=== PATIENT | female | born 1950 | race Caucasian/White ===

== ENCOUNTER → 2024-03-27 17:51 | Outpatient (REF) | payer OTHER, SELFPAY | LOC: RAD 17:51 | PROVIDERS: ATTENDING PHYSICIAN Internal Medicine Rheumatology; FAMILY PHYSICIAN Family Medicine | DX: M06.00 Rheumatoid arthritis without rheumatoid factor, unspecified site (principal); M25.562 Pain in left knee | CPT/HCPCS: 73560; 73565 ==

== ENCOUNTER → 2024-05-21 10:34 | Outpatient (REF) | payer OTHER, SELFPAY | LOC: HWRAD 10:34 | PROVIDERS: ATTENDING PHYSICIAN Internal Medicine Critical Care Medicine; FAMILY PHYSICIAN Family Medicine | DX: J84.9 Interstitial pulmonary disease, unspecified (principal) | CPT/HCPCS: 71250 ==

== ENCOUNTER 2024-09-25 13:22 | Inpatient (IN) | payer OTHER, SELFPAY ==
[2024-09-25 11:43] LABS: Hemoglobin 13.1 g/dL (12.0-16.0); Mean Corp Hgb Conc. 33.6 g/dL (33.0-37.0); Mean Corpuscular Hgb 35.1 pg (27.0-31.0); Mean Corpuscular Volume 104.6 fL (81.0-99.0); Mean Platelet Volume 9.6 fL (7.4-10.4); Platelet Count 163 10^3/uL (130-400); Red Blood Cell Count 3.73 10^6/uL (4.20-5.40); Red Cell Dist. Width 13.4 % (11.5-14.5); White Blood Cell Count 5.3 10^3/uL (4.8-10.8)
[2024-09-25 11:58] LABS: Lactic Acid 1.5 mmol/L (0.7-2.0)
[2024-09-25 12:14] LABS: ALT (SGPT) 21 U/L (0-35); AST (SGOT) 35 U/L (14-36); Albumin 3.7 g/dl (3.5-5.0); Alkaline Phosphatase 86 U/L (38-126); Blood Urea Nitrogen 23 mg/dl (7-17); Calcium 8.5 mg/dl (8.4-10.2); Carbon Dioxide 28 mmol/L (22-30); Chloride 92 mmol/L (98-107); Estimated Creatinine Clearance 69 ml/min; Glucose 134 mg/dl (70-99); Sodium 131 mmol/L (135-145); Total Bilirubin 0.8 mg/dl (0.2-1.3); Total Protein 6.6 g/dl (6.3-8.2); eGFR > 60.00
--- NOTE | 2024-09-25 12:32 | ED.GENMED ---
History of Present Illness
General
Chief Complaint: Breathing Problem
Source: patient, records, family, ambulance crew and physician
Exam Limitations: none
Time Seen by Provider: 09/25/24 12:00
Nursing documentation reviewed up to this point in time: agreed with
History of Present Illness
History of Present Illness:
74-year-old female with a past medical history of interstitial lung disease, rheumatoid arthritis who presents to the emergency department sent by her PCP via EMS for evaluation of worsening shortness of breath and cough, hypoxia. Patient reports
that for the past week or so she has had flulike illness that she describes myalgias, hacking cough, shortness of breath. She is feeling very fatigued. She says she has had some nausea and even 2 episodes of vomiting. She has been dealing with
some diarrhea. Tactile fever. Symptoms were not improving and in fact shortness of breath was worsening and so she went to her PCP for evaluation today. There she was found to be tachycardic, tachypneic, hypoxic and was referred to the ER. She
was tested for COVID and flu at PCP office and these were negative.
Past History
Past History
ED Past Medical History: Other (Interstitial lung scarring) and Other (Rheumatoid arthritis); Negative Asthma, HTN, Hypercholesterolemia or NIDDM
ED Past Surgical History: Orthopedic (Bilateral hip replacements left shoulder surgery)
Social History
Tobacco: Non-smoker
Alcohol: Occasional
Drug: None
Personal:
Living: with family
Employment: Retired
Family History
Family History: Other (Noncontributory)
Review of Systems
Review of Systems
All Other Systems: ROS reviewed and negative except as documented in HPI and ROS
Constitutional: Reports fever and fatigue; Denies chills
EENT: Reports runny nose; Denies sore throat
Respiratory: Reports cough and trouble breathing
Cardiac: Denies chest pain or palpitations
ABD/GI: Reports nausea, vomiting and diarrhea; Denies abdominal pain
: Denies flank pain
Musculoskeletal: Denies edema, neck pain or back pain
Neurological: Reports headache; Denies dizzy
Phy Exam
Physical Exam
Physical Exam:
General: Awake, alert, oriented x3; mild respiratory distress
Head: Normocephalic, atraumatic
Eyes: Conjunctiva normal, sclera anicteric
Throat: Airway intact, handling secretions
Neck: Trachea midline, supple without meningismus
Lungs: Hypoxic requiring 4 L nasal cannula, tachypneic; scattered rhonchorous breath sounds most pronounced at the lung bases
Heart: Tachycardia with regular rhythm, no murmurs, gallops, or rubs
Neuro: No gross deficits
Skin:, Dry, warm and well-perfused
Extremities: No edema in extremities, equal pulses in all extremities
Scores
Heart Failure Risk
Heart Failure Risk Score: Not Applicable
Heart Score for Chest Pain Patients
STEMI patient?: Not applicable
Withdrawal Assessment of Alcohol
Withdrawal Assessment Completed?: Not applicable
Sepsis
Sepsis Screening
Sepsis Assessment: Sepsis
Sepsis Screen
Sepsis Screen: Sepsis
Date: 09/25/24
Time: 12:35
Course
Orders/Labs/Results
Orders:
Orders
09/25/24 11:20
CR Chest - 2 Views Urgent
Comment:
Reason For Exam: sob
09/25/24 11:26
Complete Blood Count/With Diff Urgent
Comprehensive Metabolic Panel Urgent
Lactate Level [Lactic Acid] Urgent
09/25/24 12:25
CT Chest W/o Iv Contrast Urgent
Comment:
Reason For Exam: worsening cough, SOB, hypoxia
Azithromycin 500 mg/250 ml [Zithromax Infusion] 500 mg in 250 ml IV NOW
CefTRIAXone [Rocephin] 1,000 mg IV NOW STA
Dexamethasone Sod Phosphate [Decadron] 10 mg IV NOW STA
Ipratropium/Albuterol Sulfate [Duoneb] 3 ml INH R NOW STA
09/25/24 12:30
Lactate Level [Lactic Acid] Urgent
Blood Culture Q30M
TRACY Source: Blood/Venous
Specimen Description:
09/25/24 13:00
Blood Culture Q30M
TRACY Source: Blood/Venous
Specimen Description:
Abnormal Lab Results
09/25/24
11:26
RBC 3.73 L 10^6/uL
(4.20-5.40)
MCV 104.6 H fL
(81.0-99.0)
MCH 35.1 H pg
(27.0-31.0)
Sodium 131 L mmol/L
(135-145)
Chloride 92 L mmol/L
(98-107)
BUN 23 H mg/dl
(7-17)
Glucose 134 H mg/dl
(70-99)
09/25/24 11:26
09/25/24 11:26
Vital Signs
Initial and Last Documented VS:
Initial Vital Signs
Resp
22
09/25/24 11:10
Last Documented Vital Signs
Temp Pulse Resp BP Pulse Ox
36.9 C 111 26 111/77 95
09/25/24 11:12 09/25/24 11:15 09/25/24 11:15 09/25/24 11:12 09/25/24 11:15
MDM/Problems Addressed
Differential Diagnosis Includes:
Interstitial lung disease, acute bronchitis, pneumonia
MDM/Problems Addressed:
74-year-old female presents to the ER for evaluation of worsening shortness of breath and cough over the past week�found to be hypoxic, tachycardic, tachypneic by PCP and referred via EMS to the ER. She arrives to us tachycardic, tachypneic,
hypoxic requiring 4 L nasal cannula. Afebrile. Normotensive. Physical exam as above. Respiratory status improved with oxygen supplementation. Will place large-bore IVs and labs including a CBC and a CMP. Check lactate and blood cultures.
Check stat portable chest x-ray. Reassess after the above.
Labs reviewed: CBC unremarkable, CMP no clinically significant abnormalities. Chest x-ray reviewed by me shows chronic interstitial lung disease suspect superimposed pneumonia. Will order CT chest to better evaluate given background lung changes.
Will cover with antibiotics for suspected community-acquired pneumonia. Can also treat with steroid and DuoNeb given background interstitial lung disease. Will admit for acute hypoxic respiratory failure suspect secondary to pneumonia in the
setting of background interstitial lung disease. Case discussed with hospitalist for admission.
Chronic conditions affecting care:
Interstitial lung disease
Acute Exacerbation and/or Progression of Chronic Illness:
Acute flare of chronic interstitial lung disease treated with steroids and neb
*Radiology
Radiology exam reviewed: preliminary read by ED provider and radiology read reviewed
*Pulse Oximetry
Patient hypoxic: yes
*Critical Care Note
Total Time (30-74mins, 75-104mins- exclusive of procedures): 30
comment:
Critical care statement: A total of 30 minutes of critical care time was provided for this patient. This includes management of unstable vital signs, evaluation of the patient at bedside, frequent reassessment, discussion with
consultants/hospitalist, and review of pertinent medical records. This time was separate from time utilized to perform any aforementioned documented procedures
Data Reviewed
Review of Other/Old Records Reveals: Labs and Records (Reviewed note from PCP office today)
Source: patient, records, family, ambulance crew and physician
Patient Management
Discussion with other providers: Hospitalist (Discussed with hospitalist) and PCP (Discussed with PCP who called ahead)
Escalation/DeEscalation of care consider admission/obs:
Admission indicated
ED Attending Note
-
Portions of this chart may have been created with voice recognition software.� Occasional wrong word or��sound alike� substitutions may have occurred due to the inherent limitations of voice recognition software.
Discharge Plan
Departure
Patient Disposition: Admit
Date of Disposition: 09/25/24
Time of Disposition: 12:30
Admit to doctor: Gigi
Presentation/result/management discussed w/ accepting MD/DO: Hospitalist
Discharge Problem:
Acute hypoxemic respiratory failure, Pneumonia, Interstitial lung disease
Prescriptions:
No Action
cholecalciferol (vitamin D3) 1,000 UNITS tablet
1,000 units PO DAILY Qty: 0
mometasone [Asmanex Twisthaler] 220 MCG aerosol powdr breath activated
2 puff inhalation DAILY
Patient Comments:
2 inhalations daily
cyanocobalamin (vitamin B-12) 1,000 MCG capsule
1,000 mcg PO DAILY Qty: 0
Vitamin B12
1,000 mg INJ MONTHLY
leflunomide [Arava] 10 MG tablet
10 mg PO DAILY
Prevacid
1 tab PO DAILY
ferrous sulfate [Iron (ferrous sulfate)] 325 MG tablet
325 mg PO DAILY
Calcium 1 TAB Tab
1 tab PO DAILY
mupirocin 1 APPLIC ointment
1 applic intranasal BID Qty: 1 0RF
Patient Comments:
patient applied today 11/18/2019 has been applying bid since 11/15/2019
Proair Hfa
2 puff inhalation PRN PRN (Reason: SOB)
sennosides [senna] 1 TABLET tablet
2 tab PO BID 0RF
aspirin 325 MG tablet
325 mg PO DAILY 0RF
Rx Instructions:
Daily x 4 weeks for blood clot prevention
docusate sodium 100 MG capsule
100 mg PO BID 0RF
hydrocodone-acetaminophen 1 TABLET tablet
1 tab PO Q4HPRN PRN (Reason: moderate-severe pain) Qty: 35 0RF
Rx Instructions:
Dx total joint replacement
ongoing therapy
1 tab moderate-severe pain
acetaminophen 500 MG tablet
500 mg PO QID Qty: 1 0RF
Rx Instructions:
Standing order
Do not exceed >4000 mg daily
naproxen sodium [Aleve] 220 MG tablet
440 mg PO BID Qty: 1 0RF
Rx Instructions:
Take twice a day with food
Do not take within 2 hours of aspirin
etanercept [Enbrel] 50 MG/ML syringe
50 mg SQ WEEKLY Qty: 1 0RF
Patient Comments:
weekly saturday
Rx Instructions:
Hold one full cycle; next dose 11/27/19
alendronate 70 MG tablet
70 mg PO WEEKLY Qty: 1 0RF
Patient Comments:
saturday
Rx Instructions:
Hold one full cycle; next dose 11/29/19
Referrals:
Robe Cooley Jr., DO [Family Provider] -
Interventions
Interventions:
*Risk Screen - Suicide Last Done: 09/25/24 11:12
*General Assessment Last Done: 09/25/24 11:12
*Neglect/Abuse Screening Last Done: 09/25/24 11:12
*ED COVID-19 Vaccine History Last Done: 09/25/24 11:12
ED- Cardiac Assessment Last Done: 09/25/24 11:12
ED- Pulmonary Assessment Last Done: 09/25/24 11:12
Discharge Date and Time
Print Language: CYMRAES
--- NOTE | 2024-09-25 12:37 | HPS.HSE ---
Family Physician
-
Family Physician: Robe Cooley Jr.
Chief Complaint
-
sog
cough
diarrhea, nausea and vomitting
History of Present Illness
74-year-old female with a past medical history of interstitial lung disease, rheumatoid arthritis who presents to the emergency department sent by her PCP via EMS for evaluation of worsening shortness of breath and cough, hypoxia. Patient reports
that for the past week or so she has been wearing generalized body ache, short of breath which is worse with exertion, nonproductive dry cough fatigue and weakness. For past 2 days she has had some nausea and even 2 episodes of vomiting and
multiple episodes of diarrhea. Denies blood in the stool or vomiting. Patient complained of headache. She is dizzy. Denied any syncope. Patient stated some midsternal pain from cough. Denied dysuria or hematuria.
Chest x-ray with pneumonia patient is requiring 4 L of oxygen. Patient received Zithromax and ceftriaxone dexamethasone and nebs in the ER. Admitting for further management
Medical History
Past Medical History
Past Medical History: Reports Other
Additional Past Medical History:
Interstitial lung disease
GERD
Pulmonary fibrosis
Rheumatoid arthritis
Hyperlipidemia
Teller's anemia
Past Surgical History: Reports Other
Additional Past Surgical History:
Bilateral total hip replacement
Left shoulder replacement
Social History
Tobacco: Non-smoker
Alcohol: Occasional
Drug: None
Personal:
Living: With Family
Family History
Family History: Not pertinent
Allergies / Home Medications
Allergies reflects when Allergies were last updated in [facility].
Home Medications with original date entered in [facility]
Allergy/Medication List:
Allergies
Allergy/AdvReac Type Severity Reaction Status Date / Time
aspirin Allergy 'severe Verified 11/18/19 10:26
bruising'
hydroxychloroquine Allergy 'altered Verified 11/18/19 10:26
[From Plaquenil] mental
state'
Penicillins Allergy Unknown Verified 11/18/19 10:26
Sulfa (Sulfonamide Allergy Unknown Verified 11/18/19 10:26
Antibiotics)
[Sulfa(Sulfonamide
Antibiotics)]
Tetanus Vaccines and Toxoid Allergy throat Verified 11/18/19 10:26
[Tetanus] closed
tofacitinib [From Xeljanz] Allergy 'altered Verified 11/18/19 10:26
mental
state'
celecoxib [From Celebrex] AdvReac Unknown Unknown Verified 11/18/19 10:26
Home Medications
Vitamin B12 1,000 mg INJ Q6W 04/21/18
cyanocobalamin (vitamin B-12) 1,000 mcg capsule 1,000 mcg PO DAILY ##0 04/21/18
mometasone 220 mcg/actuation(14 doses) breath activated powder inhaler (Asmanex Twisthaler) 2 puff inhalation R DAILY 04/21/18
leflunomide 10 mg tablet (Arava) 10 mg PO DAILY 09/19/19
albuterol sulfate 90 mcg/actuation aerosol inhaler 2 puff inhalation R Q4HPRN PRN sob ##0 11/10/19
acetaminophen 650 mg tablet,extended release (Tylenol Arthritis Pain) 1,300 mg PO Q8HPRN PRN mild pain 09/25/24
ascorbic acid (vitamin C) 1,000 mg tablet (Vitamin C) 1 g PO DAILY 09/25/24
cholecalciferol (vitamin D3) 50 mcg (2,000 unit) tablet (Vitamin D3) 50 mcg PO Q48H 09/25/24
duloxetine 30 mg capsule,delayed release 30 mg PO BID 09/25/24
famotidine 20 mg tablet (Pepcid) 20 mg PO HS 09/25/24
fexofenadine 180 mg tablet 180 mg PO DAILY 09/25/24
fluticasone 500 mcg-salmeterol 50 mcg/dose blistr powdr for inhalation 1 inh inhalation R BID 09/25/24
omega 1-zar-ypn-fish oil 1,200 mg (144 mg-216 mg) capsule (Fish Oil) 1 cap PO DAILY 09/25/24
rosuvastatin 5 mg tablet 5 mg PO DAILY 09/25/24
turmeric 400 mg capsule 800 mg PO DAILY 09/25/24
Review of Systems
-
Constitutional: Reports Fatigue and Chills
EENT: Reports No Symptoms
Respiratory: Reports Cough, Hemoptysis and Trouble Breathing
Cardiac: Reports No Symptoms
Abdomen/GI: Reports Nausea, Vomiting and Diarrhea
: Reports No Symptoms
Musculoskeletal: Reports No Symptoms
Skin: Reports No Symptoms
Neurological: Reports No Symptoms
Endocrine: Reports No Symptoms
Hematologic/Lymphatic: Reports No Symptoms
Psych: Reports No Symptoms
Physical Exam
Vital Signs
Vital Signs
Temp Pulse Resp BP Pulse Ox
98.5 F 111 26 111/77 95
09/25/24 11:12 09/25/24 11:15 09/25/24 11:15 09/25/24 11:12 09/25/24 11:15
Physical Exam
General: Well Developed, Well Nourished and No Apparent Distress
HEENT: NormoCephalic, Moist mucous membranes and Atraumatic
Respiratory: Rhonchi
Cardiac: S1/S2 and Regular Rhythm; No Murmur or Rub
GI: Soft, Non Tender, Non Distended and Normal Bowel Sounds; No Organomegaly
Rectal: Deferred by Provider
Musculoskeletal: No Clubbing, No Cyanosis and No Edema
Skin: No Rash
Neuro: AO x 3 and Nonfocal/grossly intact
Psych: Calm
Laboratory Results
-
09/25/24 11:26
09/25/24 11:26
Laboratory Results
Lactic Acid 1.5 mmol/L (0.7-2.0) 09/25/24 11:26
Total Bilirubin 0.8 mg/dl (0.2-1.3) 09/25/24 11:26
AST 35 U/L (14-36) 09/25/24 11:26
ALT 21 U/L (0-35) 09/25/24 11:26
Alkaline Phosphatase 86 U/L (38-126) 09/25/24 11:26
Data Reviewed
-
Diagnostic Radiology: Report Reviewed by me
Lab Data: Labs Reviewed by me
Impression/Plan
-
# Acute hypoxic respiratory failure likely from community acquired pneumonia
# History of interstitial lung disease
-COVID flu negative
-Chest x-ray with Findings suggesting severe pulmonary fibrosis, left greater than right.Possible mild superimposed pneumonia in the left lung and right lower lung as described above. New
-Patient requiring 4 L of oxygen
-Continue supplemental oxygen to keep sat greater than 92
-Wean as tolerated
-Nebs as needed for short of breath and wheezing
-IV steroids continued
-CT chest pending
- Zithromax and ceftriaxone continued
# Hyponatremia likely hypervolemic
-Sodium 131
-Normal saline x 1 bag
-BMP in a.m.
#Tachycardia likely from dehydration
-Fluids continued
-Continue to monitor heart rate
# Depression
-Duloxetine
# GERD
-PPI continued
# Rheumatoid arthritis
-held Arava at home.
# Hyperlipidemia
-Statin continued
# DVT prophylaxis
-Lovenox subcu
# CODE STATUS
-Full code
[2024-09-25] MEDS: DECADRON 10 MG IV (12:41)
[2024-09-25] MEDS: DUONEB 3 ML INH ×2 (12:46→20:28)
[2024-09-25] MEDS: ROCEPHIN 1000 MG IV (12:59)
[2024-09-25] MEDS: ZITHROMAX INFUSION 250 IV (13:01)
[2024-09-25 13:19] LABS: Absolute Neutrophils -Man Diff 3.7 10^3/uL (1.4-6.5); Atypical Lymphocytes 3 %; Band Neutrophils 19 % (0-3); Lymphocytes 16 % (20-51); Metamyelocytes 2 % (-); Monocytes 9 % (2-9); Segmented Neutrophils 51 % (42-75)
--- NOTE | 2024-09-25 13:19 | W.PN.UPDATE ---
Update Note
Progress Note Update
This note serves as an addendum to the H&P by lube man JONATHON
Shaina jeremiah
HPI
74F Non smoker, established Non O2 decedent ILDz, HX RA on Biologic agent Arava, sent by her PCP via EMS to ER;
- for evaluation of worsening shortness of breath and cough, hypoxia.
- past week or so she has had flulike illness that she describes myalgias, hacking cough, shortness of breath.
- feeling very fatigued and
- Nausea and 2 episodes of vomiting, diarrhea.
- Tactile fever.
At PCP : tachycardic, tachypneic, hypoxic and was referred to the ER.
She was tested for COVID and flu at PCP office and these were negative.
PHX
Interstitial lung scarring
Rheumatoid arthritis
Bilateral hip replacements
left shoulder surgery
Reviewed VS: Afebrile ST hi 100s 110/75 RR18 POx 95% on 4L
PE
Gen: Not toxic , cough with deep breathing, thin looking
HEENT: anicteric
Neck: supple
Lungs: b/l coarse rhonchi
Cor: RRR S1 s2
Abdomen: Benign exam
[employer]: AAO3, grossly normal
MS: no edema
Psych: appropriate
Data
WCC 5.3
Na 131
Cl 92
BUN 23
eGFR > 60
Pending LA
Pending Covid
She was tested for COVID and flu at PCP office and these were negative.
09/25/24 CXR:
- Findings suggesting severe pulmonary fibrosis, left greater than right.
- Possible mild superimposed pneumonia in the left lung and right lower lung as described above.
09/03/20 ECHO
LVEF 55-60
Normal diastolic function.
ASSESSMENT & PLAN
Acute hypoxic RI required NC O2 support
Associated with presume PNA /CAP
Associated with incipient SIRS
B/L wheezes on exam
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
- Agree with IV CFTX and PO Azithromycin
- agree with IV Decadron 4mg q8h
- DuoNeb qid and PRN
- Hold Arava during presumed acute infection
- cont. NC O2 support : Goal POX > 94%
- to f/u CT Chest at ER
Borderline hypotension & tachycardia
clinically dehydrated
- agree with NS 1 L
HX RA
- stable
- Held Arava during presumed acute infection
DVT Px: LMWH
Code: Full code
IP TLM
[2024-09-25 13:20] LABS: Normal RBC Morphology Yes; Platelets Checked Yes; Total Cells Counted 100
[2024-09-25 13:21] LABS: Toxic Granulation 1+
[2024-09-25 13:40] LABS: COVID-19 Antigen Negative (Negative)
[2024-09-25] MEDS: NSS 1000 IV (14:48)
[2024-09-25] MEDS: LOVENOX 40 MG SC (21:16)
[2024-09-25] MEDS: PEPCID 20 MG PO (21:16)
[2024-09-25] MEDS: CYMBALTA DELAYED RELEASE 30 MG PO (21:16)
[2024-09-25] MEDS: DECADRON 4 MG IV (21:17)
[2024-09-25] MEDS: MUCINEX 600 MG PO (21:17)
[2024-09-26] MEDS: DECADRON 4 MG IV (05:08)
[2024-09-26 08:41] VITALS: O2SAT 94
[2024-09-26 09:07] LABS: Blood Urea Nitrogen 21 mg/dl (7-17); Calcium 8.4 mg/dl (8.4-10.2); Carbon Dioxide 29 mmol/L (22-30); Chloride 99 mmol/L (98-107); Estimated Creatinine Clearance 69 ml/min; Glucose 136 mg/dl (70-99); Potassium 3.6 mmol/L (3.5-5.1); Sodium 136 mmol/L (135-145); eGFR > 60.00
[2024-09-26] MEDS: CRESTOR 5 MG PO (09:19)
[2024-09-26] MEDS: CLARITIN 10 MG PO (09:19)
[2024-09-26] MEDS: CYMBALTA DELAYED RELEASE 30 MG PO ×2 (09:19→21:31)
[2024-09-26] MEDS: MUCINEX 600 MG PO ×2 (09:19→21:31)
[2024-09-26] MEDS: FLUSH (NSS) 1 FLUSH IV (09:20)
--- NOTE | 2024-09-26 12:40 | PTCARENOTE ---
Made Dr. Felix aware that pt's urine came back positive for Srep Pneumoniae Antigen. Per lab, no need for isolation.
[2024-09-26] MEDS: ZITHROMAX INFUSION 250 IV (13:37)
[2024-09-26] MEDS: STERILE WATER FOR INJECTION 10 ML IV (13:39)
[2024-09-26] MEDS: ROCEPHIN 1000 MG IV (13:39)
[2024-09-26] MEDS: DECADRON IV (13:54)
--- NOTE | 2024-09-26 14:22 | W.PN.HOSP.TC ---
Today's Communication/Plan
-
cont abx
f/u cultures
wean o2
Assessment / Plan
Assessment / Plan
Physical Exam
General: Well Developed, Well Nourished and No Apparent Distress
HEENT: NormoCephalic, Moist mucous membranes and Atraumatic
Respiratory: Rhonchi
Cardiac: S1/S2 and Regular Rhythm; No Murmur or Rub
GI: Soft, Non Tender, Non Distended and Normal Bowel Sounds; No Organomegaly
Rectal: Deferred by Provider
Musculoskeletal: No Clubbing, No Cyanosis and No Edema
Skin: No Rash
Neuro: AO x 3 and Nonfocal/grossly intact
Psych: Calm
#Sepsis
# Acute hypoxic respiratory failure likely from multifocal pneumonia, flu positive, strep pneumo
# History of interstitial lung disease
-COVID flu negative
-Chest x-ray with Findings suggesting severe pulmonary fibrosis, left greater than right.Possible mild superimposed pneumonia in the left lung and right lower lung as described above. New
-Patient requiring 4 L of oxygen, wean as tolerated
-Continue supplemental oxygen to keep sat greater than 90
-Wean as tolerated
-Nebs as needed for short of breath and wheezing
- Zithromax and ceftriaxone continued
-Incentive Jhoan
�Hold on steroids, issues are due to pneumonia, less likely ILD flare
# Hyponatremia
-Likely SIADH
-monitor
# Depression
-Duloxetine
# GERD
-PPI continued
# Rheumatoid arthritis
-held Arava at home.
# Hyperlipidemia
-Statin continued
# DVT prophylaxis
-Lovenox subcu
# CODE STATUS
-Full code
Total time spent on today's encounter was 50 minutes which included time spent in counseling the patient/family regarding diagnosis and treatment plan as listed above, goals of care, and symptom management. Case was discussed with nursing staff,
specialists, and care coordinators/case management. All labs and imaging personally reviewed by me. Remainder the time spent in detailed review of previous records, lab data, imaging, and other medical provider documentation.
Anticipated Discharge: 24 - 48 hours
Subjective/Interval History
-
Date of Service: September 26, 2024
feels much better today
Objective Data
-
Labs:
Laboratory Results
09/26/24
07:28
Sodium 136
Potassium 3.6
Chloride 99
Carbon Dioxide 29
BUN 21 H
Creatinine 0.5 L
Glucose 136 H
Calcium 8.4
Vital Signs:
Vital Signs
Temp Pulse Resp BP Pulse Ox
97.5 F 83 20 115/76 94
09/26/24 11:55 09/26/24 11:55 09/26/24 11:55 09/26/24 11:55 09/26/24 13:36
I&O
09/25/24 09/26/24 09/27/24
06:59 06:59 06:59
Intake Total 0 / 0 180 / 180
Output Total 450 / 450 800 / 800
Balance -450 / -450 -620 / -620
Review of Systems
-
History Source: Patient
All other systems: Not reviewed unless documented
Data Reviewed
-
Diagnostic Radiology: Report Reviewed by me
CT Scan: Image personally visualized and interpreted and Report Reviewed by me
Labs: Labs Reviewed by me
[2024-09-26 17:02] VITALS: O2SAT 90; O2SAT 94
[2024-09-26] MEDS: LOVENOX 40 MG SC (18:08)
[2024-09-26] MEDS: FLOVENT 44 MCG INHALER 1 PUFF INH (18:32)
[2024-09-26] MEDS: ADVAIR HFA 230/21 MCG INHALER 2 PUFF INH (18:32)
--- NOTE | 2024-09-26 20:05 | W.PN.UPDATE ---
Update Note
Progress Note Update
This note serves as an addendum to the H&P by engagement quality consultant JONATHON
Shaina jeremiah
HPI
74F Non smoker, established Non O2 depedent ILDz, HX RA on Biologic agent Arava, sent by her PCP via EMS to ER;
- for evaluation of worsening shortness of breath and cough, hypoxia.
- past week or so she has had flulike illness that she describes myalgias, hacking cough, shortness of breath.
- feeling very fatigued and
- Nausea and 2 episodes of vomiting, diarrhea.
- Tactile fever.
At PCP : tachycardic, tachypneic, hypoxic and was referred to the ER.
She was tested for COVID and flu at PCP office and these were negative.
PHX
Interstitial lung scarring
Rheumatoid arthritis
Bilateral hip replacements
left shoulder surgery
Reviewed VS: Afebrile ST hi 100s 110/75 RR18 POx 95% on 4L
PE
Gen: Not toxic , cough with deep breathing, thin looking
HEENT: anicteric
Neck: supple
Lungs: b/l coarse ronchii
Cor: RRR S1 s2
Abdomen: Benign exam
[employer]: AAO3, grossly normal
MS: no edema
Psych: appropriate
Data
WCC 5.3
Na 131
Cl 92
BUN 23
eGFR > 60
She was tested for COVID and flu at PCP office and these were negative.
09/25/24 CXR:
- Findings suggesting severe pulmonary fibrosis, left greater than right.
- Possible mild superimposed pneumonia in the left lung and right lower lung as described above.
09/03/20 ECHO
LVEF 55-60
Normal diastolic function.
ASSESSMENT & PLAN
Acute hypoxic RI required NC O2 support
Associated with presume PNA /CAP
Associated with incipient SIRS
B/L wheezes on exam
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
- Agree with IV CFTX and PO Azithromycin
- agree with IV Decadron 4mg q8h
- DuoNeb qid and PRN
- Hold Arava during presumed acute infection
- cont. NC O2 support : Goal POX > 94%
- to f/u CT Chest at ER
Borderline hypotension & tachycardia
clinically dehydrated
- agree with NS 1 L
HX RA
- stable
- Held Arava during presumed acute infection
DVT Px: LMWH
Code: Full code
IP TLM
[2024-09-26] MEDS: PEPCID 20 MG PO (21:31)
[2024-09-27 08:28] LABS: Hematocrit 35.4 % (37.0-47.0); Hemoglobin 12.1 g/dL (12.0-16.0); Mean Corp Hgb Conc. 34.2 g/dL (33.0-37.0); Mean Corpuscular Hgb 35.4 pg (27.0-31.0); Mean Corpuscular Volume 103.5 fL (81.0-99.0); Mean Platelet Volume 9.3 fL (7.4-10.4); Platelet Count 251 10^3/uL (130-400); Red Blood Cell Count 3.42 10^6/uL (4.20-5.40); Red Cell Dist. Width 13.1 % (11.5-14.5); White Blood Cell Count 8.2 10^3/uL (4.8-10.8)
[2024-09-27] MEDS: FLOVENT 44 MCG INHALER 1 PUFF INH ×2 (08:51→19:59)
[2024-09-27] MEDS: ADVAIR HFA 230/21 MCG INHALER 2 PUFF INH ×2 (08:51→19:59)
[2024-09-27 08:56] LABS: ALT (SGPT) 22 U/L (0-35); AST (SGOT) 35 U/L (14-36); Albumin 3.3 g/dl (3.5-5.0); Alkaline Phosphatase 83 U/L (38-126); Blood Urea Nitrogen 24 mg/dl (7-17); Calcium 8.7 mg/dl (8.4-10.2); Carbon Dioxide 31 mmol/L (22-30); Chloride 99 mmol/L (98-107); Estimated Creatinine Clearance 69 ml/min; Glucose 130 mg/dl (70-99); Potassium 3.7 mmol/L (3.5-5.1); Sodium 135 mmol/L (135-145); Total Bilirubin 0.3 mg/dl (0.2-1.3); Total Protein 6.3 g/dl (6.3-8.2); eGFR > 60.00
[2024-09-27] MEDS: CLARITIN 10 MG PO (09:15)
[2024-09-27] MEDS: CYMBALTA DELAYED RELEASE 30 MG PO ×2 (09:15→19:51)
[2024-09-27] MEDS: MUCINEX 600 MG PO ×2 (09:15→19:51)
[2024-09-27] MEDS: CRESTOR 5 MG PO (09:15)
[2024-09-27] MEDS: ROCEPHIN 1000 MG IV (13:30)
[2024-09-27] MEDS: STERILE WATER FOR INJECTION 10 ML IV (13:30)
[2024-09-27] MEDS: ZITHROMAX INFUSION 250 IV (13:30)
--- NOTE | 2024-09-27 14:22 | W.PN.HOSP.TC ---
Today's Communication/Plan
-
Continue to wean O2, ambulatory pulse ox prior to discharge
Continue to antibiotics
Assessment / Plan
Assessment / Plan
Physical Exam
General: Well Developed, Well Nourished and No Apparent Distress
HEENT: NormoCephalic, Moist mucous membranes and Atraumatic
Respiratory: Rhonchi
Cardiac: S1/S2 and Regular Rhythm; No Murmur or Rub
GI: Soft, Non Tender, Non Distended and Normal Bowel Sounds; No Organomegaly
Rectal: Deferred by Provider
Musculoskeletal: No Clubbing, No Cyanosis and No Edema
Skin: No Rash
Neuro: AO x 3 and Nonfocal/grossly intact
Psych: Calm
#Sepsis
# Acute hypoxic respiratory failure likely from multifocal pneumonia, flu positive, strep pneumo
# History of interstitial lung disease
-COVID flu negative
-Chest x-ray with Findings suggesting severe pulmonary fibrosis, left greater than right.Possible mild superimposed pneumonia in the left lung and right lower lung as described above. New
-Patient requiring 4 L of oxygen, wean as tolerated�on 1 L today, continue to wean and ambulatory pulse ox eval prior to discharge
-Continue supplemental oxygen to keep sat greater than 90
-Wean as tolerated
-Nebs as needed for short of breath and wheezing
- Zithromax and ceftriaxone continued
-Incentive [employer]
�Hold on steroids, issues are due to pneumonia, less likely ILD flare
# Hyponatremia
-Likely SIADH
-monitor
� Improving
# Depression
-Duloxetine
# GERD
-PPI continued
# Rheumatoid arthritis
-held Arava at home.
# Hyperlipidemia
-Statin continued
# DVT prophylaxis
-Lovenox subcu
# CODE STATUS
-Full code
Anticipated Discharge: Within 24 hours
Subjective/Interval History
-
Date of Service: September 27, 2024
Feels better, wean O2 to 1 L
Objective Data
-
Labs:
Laboratory Results
09/27/24
06:56
WBC 8.2
Hgb 12.1
Hct 35.4 L
Plt Count 251 D
Sodium 135
Potassium 3.7
Chloride 99
Carbon Dioxide 31 H
BUN 24 H
Creatinine 0.4 L
Glucose 130 H
Calcium 8.7
Total Bilirubin 0.3
AST 35
ALT 22
Alkaline Phosphatase 83
Vital Signs:
Vital Signs
Temp Pulse Resp BP Pulse Ox
97.7 F 83 18 120/84 93
09/27/24 11:20 09/27/24 11:20 09/27/24 11:20 09/27/24 11:20 09/27/24 13:54
I&O
09/26/24 09/27/24 09/28/24
06:59 06:59 06:59
Intake Total 0 / 0 670 / 670
Output Total 450 / 450 800 / 800
Balance -450 / -450 -130 / -130
Review of Systems
-
History Source: Patient
All other systems: Not reviewed unless documented
Data Reviewed
-
Diagnostic Radiology: Report Reviewed by me
CT Scan: Image personally visualized and interpreted and Report Reviewed by me
Labs: Labs Reviewed by me
[2024-09-27] MEDS: DUONEB 3 ML INH ×2 (15:05→19:59)
[2024-09-27 17:30] VITALS: O2SAT 84; O2SAT 89
--- NOTE | 2024-09-27 17:46 | PTCARENOTE ---
Pt 89-90% on RA at rest, denies dyspnea. Pt wanted to try to ambulate to bathroom in room without O2. Assessed pt with ambulating just to bathroom and SPO2 dropped to 84% on RA, dyspnea. Placed pt back on 1L of O2 via NC, SPO2 93% on 1L.
[2024-09-27] MEDS: LOVENOX 40 MG SC (18:10)
[2024-09-27] MEDS: PEPCID 20 MG PO (19:51)
[2024-09-28 07:29] LABS: Hematocrit 34.2 % (37.0-47.0); Hemoglobin 11.6 g/dL (12.0-16.0); Mean Corp Hgb Conc. 33.9 g/dL (33.0-37.0); Mean Corpuscular Volume 103.3 fL (81.0-99.0); Platelet Count 268 10^3/uL (130-400); Red Blood Cell Count 3.31 10^6/uL (4.20-5.40); Red Cell Dist. Width 13.1 % (11.5-14.5); White Blood Cell Count 7.9 10^3/uL (4.8-10.8)
[2024-09-28] MEDS: MUCINEX 600 MG PO ×2 (07:35→20:17)
[2024-09-28] MEDS: CLARITIN 10 MG PO (07:35)
[2024-09-28] MEDS: CYMBALTA DELAYED RELEASE 30 MG PO ×2 (07:35→20:17)
[2024-09-28] MEDS: CRESTOR 5 MG PO (07:35)
[2024-09-28] MEDS: ADVAIR HFA 230/21 MCG INHALER 2 PUFF INH ×2 (07:36→19:25)
[2024-09-28] MEDS: DUONEB 3 ML INH ×4 (07:36→19:24)
[2024-09-28] MEDS: FLOVENT 44 MCG INHALER 1 PUFF INH ×2 (07:36→19:25)
[2024-09-28 07:59] LABS: ALT (SGPT) 25 U/L (0-35); AST (SGOT) 33 U/L (14-36); Albumin 3.1 g/dl (3.5-5.0); Alkaline Phosphatase 79 U/L (38-126); Blood Urea Nitrogen 17 mg/dl (7-17); Calcium 8.5 mg/dl (8.4-10.2); Carbon Dioxide 33 mmol/L (22-30); Chloride 98 mmol/L (98-107); Estimated Creatinine Clearance 69 ml/min; Glucose 97 mg/dl (70-99); Potassium 3.6 mmol/L (3.5-5.1); Sodium 137 mmol/L (135-145); Total Bilirubin 0.2 mg/dl (0.2-1.3); eGFR > 60.00
[2024-09-28] MEDS: ROBITUSSIN DM 10 ML PO (10:28)
[2024-09-28] MEDS: ROCEPHIN 1000 MG IV (11:30)
[2024-09-28] MEDS: STERILE WATER FOR INJECTION 10 ML IV (11:31)
[2024-09-28] MEDS: ZITHROMAX INFUSION 250 IV (12:13)
--- NOTE | 2024-09-28 15:12 | W.PN.HOSP.TC ---
Today's Communication/Plan
-
Wean Ox
CW Ceftriaxone
DC Zithromax
Assessment / Plan
Assessment / Plan
#Sepsis
# Acute hypoxic respiratory failure likely from multifocal pneumonia, flu positive, strep pneumo urinary ag positive
# History of interstitial lung disease
-COVID flu negative
-Chest x-ray with Findings suggesting severe pulmonary fibrosis, left greater than right.Possible mild superimposed pneumonia in the left lung and right lower lung as described above. New
-Patient requiring 4 L of oxygen, wean as tolerated�on 1 L today, continue to wean and ambulatory pulse ox eval prior to discharge
-Continue supplemental oxygen to keep sat greater than 90
-Wean as tolerated
-Nebs as needed for short of breath and wheezing
- cw ceftriaxone continued, will dc further zithromax
-Incentive [place]
�Hold on steroids as no active reactive airways;feel less likely ILD flare
- Consult pulmonary
# Hyponatremia
-Likely SIADH
-monitor
� Resolved
# Depression
-Duloxetine
# GERD
-PPI continued
# Rheumatoid arthritis
-held Arava at home.
# Hyperlipidemia
-Statin continued
# DVT prophylaxis
-Lovenox subcu
# CODE STATUS
-Full code
Anticipated Discharge: 24 - 48 hours
Subjective/Interval History
-
Date of Service: September 28, 2024
Denies shortness of breath ; troubled with cough which is giving her chest and abdo pains.
No fever chills.
Objective Data
-
Labs:
Laboratory Results
09/28/24
06:09
WBC 7.9
Hgb 11.6 L
Hct 34.2 L
Plt Count 268
Sodium 137
Potassium 3.6
Chloride 98
Carbon Dioxide 33 H
BUN 17
Creatinine 0.4 L
Glucose 97
Calcium 8.5
Total Bilirubin 0.2
AST 33
ALT 25
Alkaline Phosphatase 79
Vital Signs:
Vital Signs
Temp Pulse Resp BP Pulse Ox
98.2 F 93 20 117/80 94
09/28/24 07:15 09/28/24 11:08 09/28/24 11:08 09/28/24 07:15 09/28/24 14:25
I&O
09/27/24 09/28/24 09/29/24
06:59 06:59 06:59
Intake Total 670 / 670 3170 / 3170 240 / 240
Output Total 800 / 800
Balance -130 / -130 3170 / 3170 240 / 240
Review of Systems
-
EENT: Denies Sore Throat
Respiratory: Reports Cough (dry)
Cardiac: Denies Palpitations
Abdomen/GI: Denies Abdominal Pain, Nausea, Vomiting or Diarrhea
Neuro: Denies Dizzy
Physical Exam
-
General: No Apparent Distress
HEENT: Moist Mucous Membranes
Respiratory: Crackles (BL more so on left), Non Labored Respirations and Other (Some inspiratory crackles occasionally than the sides of the lungs); Negative Wheezes or Accessory Resp Muscle Use
Cardiac: Regular Rhythm and S1/S2; Negative Tachycardic
GI: Soft and Nontender
Musculoskeletal: No Edema
Neuro: AO x 3
Psych: Calm; Negative Confused or Agitated
Data Reviewed
-
Labs: Labs Reviewed by me
[2024-09-28] MEDS: LOVENOX 40 MG SC (16:30)
--- NOTE | 2024-09-28 16:33 | CM ---
Alert awake oriented patient who lives with her Everardo who lives in a 2 story home with 2 steps to enter.She is independent in driving and in all activities of daily living.Offered VN she declined.She is on new oxygen .
No adaptive devices
had [facility]NF
Pharmacy [facility]
PCP Dr Cooley
PLAN Home no needs Watch for new oxygen
[2024-09-28] MEDS: TESSALON PERLES 100 MG PO (20:33)
[2024-09-28] MEDS: PEPCID 20 MG PO (21:41)
[2024-09-29] MEDS: FLOVENT 44 MCG INHALER 1 PUFF INH ×2 (07:38→19:32)
[2024-09-29] MEDS: DUONEB 3 ML INH ×4 (07:38→19:32)
[2024-09-29] MEDS: ADVAIR HFA 230/21 MCG INHALER 2 PUFF INH ×2 (07:39→19:32)
--- NOTE | 2024-09-29 08:03 | CON.PUL ---
Consultation
Consultation Request
Date/Time Consultation Requested: 09/29/2024-7:30 AM
Date/Time Consultation Performed: 09/29/2024-8 AM
Requesting Provider: Hospitalist
Performing Provider: Dr. Zacarias
Reason for Consultation: Shortness of breath
Medical History
-
Chief Complaint: Shortness of breath
History of Present Illness:
74-year-old female with history of interstitial lung disease followed by Dr. Henning as well as rheumatoid arthritis, hyperlipidemia, presented with increasing shortness of breath, cough and hypoxemia felt to have pneumonia and pulmonary was
consulted for Influenza/ILD/pneumonia 09/29/2024. Patient states that she feels somewhat improved but still has chest congestion, nonproductive cough, shortness of breath, occasional wheezing, no chest pain, pleurisy, abdominal pain, leg swelling or
focal weakness.
Past Medical History
Past Medical History: None (ILD. Rheumatoid arthritis. Hyperlipidemia. GERD. Seasonal allergies. Bilateral hip replacement. Left shoulder replacement.)
Social History
Tobacco: Non-smoker
Alcohol: None
Drug: None
Personal:
Living: With Family
Occupational Exposures: No known asbestos exposure
Environmental Exposures: No known tuberculosis exposure
Family History
Family History: Other (Father-asthma and hyperlipidemia. Daughter-diabetes. Mother-osteoporosis.)
Allergies / Home Medications
Allergies
Allergy/AdvReac Type Severity Reaction Status Date / Time
aspirin Allergy 'severe Verified 11/18/19 10:26
bruising'
celecoxib [From Celebrex] Allergy Unknown Verified 09/25/24 17:25
hydroxychloroquine Allergy 'altered Verified 11/18/19 10:26
[From Plaquenil] mental
state'
Penicillins Allergy have not Verified 09/25/24 17:25
had since
early
childhood
Sulfa (Sulfonamide Allergy had as a Verified 09/25/24 17:25
Antibiotics) child
[Sulfa(Sulfonamide
Antibiotics)]
Tetanus Vaccines and Toxoid Allergy throat Verified 11/18/19 10:26
[Tetanus] closed
tofacitinib [From Xeljanz] Allergy 'altered Verified 11/18/19 10:26
mental
state'
Home Medications
�Medication �Instructions �Recorded �Confirmed �Last Taken �Type
Vitamin B12 1,000 mg INJ Q6W Supplement 04/21/18 09/25/24 11/04/19 History
cyanocobalamin (vitamin B-12) 1,000 mcg PO DAILY Supplement ##0 04/21/18 09/25/24 11/15/19 History
1,000 mcg capsule
mometasone 220 mcg/actuation(14 2 puff inhalation R DAILY 04/21/18 09/25/24 11/18/19 07:30 History
doses) breath activated powder Lung/Breathing Issues
inhaler (Asmanex Twisthaler)
leflunomide 10 mg tablet (Arava) 10 mg PO DAILY Rheumatoid 09/19/19 09/25/24 11/17/19 08:00 History
Arthiritis
albuterol sulfate 90 mcg/actuation 2 puff inhalation R Q4HPRN PRN sob 11/10/19 09/25/24 Unknown History
aerosol inhaler ##0
acetaminophen 650 mg 1,300 mg PO Q8HPRN PRN mild pain 09/25/24 09/25/24 Unknown History
tablet,extended release (Tylenol
Arthritis Pain)
ascorbic acid (vitamin C) 1,000 mg 1 g PO DAILY Supplement 09/25/24 09/25/24 Unknown History
tablet (Vitamin C)
cholecalciferol (vitamin D3) 50 50 mcg PO Q48H Supplement 09/25/24 09/25/24 Unknown History
mcg (2,000 unit) tablet (Vitamin
D3)
duloxetine 30 mg capsule,delayed 30 mg PO BID Depression 09/25/24 09/25/24 Unknown History
release
famotidine 20 mg tablet (Pepcid) 20 mg PO HS Gastrointestinal Issue 09/25/24 09/25/24 Unknown History
fexofenadine 180 mg tablet 180 mg PO DAILY Allergies 09/25/24 09/25/24 Unknown History
fluticasone 500 mcg-salmeterol 50 1 inh inhalation R BID 09/25/24 09/25/24 Unknown History
mcg/dose blistr powdr for Lung/Breathing Issues
inhalation
omega 0-yeh-kyy-fish oil 1,200 mg 1 cap PO DAILY Supplement 09/25/24 09/25/24 Unknown History
(144 mg-216 mg) capsule (Fish Oil)
rosuvastatin 5 mg tablet 5 mg PO DAILY High Cholesterol 09/25/24 09/25/24 Unknown History
turmeric 400 mg capsule 800 mg PO DAILY Supplement 09/25/24 09/25/24 Unknown History
Review of Systems
-
Unable to Obtain full review of systems at this time due to: Other (Per HPI)
Vitals / Labs / Diagnostic Testing
Vital Signs
Temp Pulse Resp BP Pulse Ox
98.6 F 71 15 109/78 93
09/28/24 23:30 09/29/24 07:50 09/29/24 07:50 09/28/24 23:30 09/29/24 07:50
Microbiology
09/25/24 12:56 Blood/Venous Blood Culture - Preliminary
No Growth in 72 hours- Final report to follow
09/25/24 12:56 Blood/Venous Blood Culture - Preliminary
No Growth in 72 hours- Final report to follow
09/26/24 08:11 Urine Legionella Urinary Antigen - Final
Negative for Legionella pneumophila Serogroup 1 antigen.
A negative result does not rule out the possiblity of
Legionella infection due to other serogroups or species of
Legionella. Clinical correlation is recommended.
09/26/24 08:11 Urine Streptococcus pneumoniae Antigen (M - Final
Positive for Strep pneumo Ag
Diagnostic Testing:
Physical Exam
-
Exam:
Well-nourished and well-developed in no apparent distress
HEENT-atraumatic, normocephalic
Neck-supple, no JVD, no bruit
Heart-regular rate and rhythm-no murmurs, rubs or gallops
Chest with diminished breath sounds, expiratory rhonchi, crackles at the bases, and forced wheezes
Back without tenderness
Abdomen-soft, nontender, nondistended, no hepatosplenomegaly
Extremities-no cyanosis, clubbing, edema and good peripheral pulses
Integument-intact, no rashes, lesions or ecchymosis
Neurology-alert and oriented, nonfocal motor and sensory exam
Assessment
-
74-year-old female with history of interstitial lung disease followed by Dr. Henning as well as rheumatoid arthritis, hyperlipidemia, presented with increasing shortness of breath, cough and hypoxemia felt to have pneumonia and pulmonary was
consulted for Influenza/ILD/pneumonia 09/29/2024.
Community-acquired pneumonia
Influenza positive-did receive this years vaccine
Urine strep pneumoniae antigen positive
Mild vhvfvj-yuhjxvnoaa-xkqkvxzukz 11.9, MCV 103.6
Mild hyperglycemia
Conditions present prior to admission:
Interstitial lung disease-followed by Dr. Henning-maintained on Advair, no antifibrotic's, mild progression from 6725-1351 and no evidence for worsening 2023
Rheumatoid arthritis-followed by Dr. Montes
Hyperlipidemia.
GERD.
Seasonal allergies.
Bilateral hip replacement. Left shoulder replacement.
Plan
Recent pulmonary decompensation likely due to community-acquired pneumonia-recently vaccinated for influenza, RSV as well as COVID
Supplemental oxygen as needed
Mucolytics
Isolation per protocol
DuoNebs 4 times daily
Continue Advair and Flovent
Add steroids with fairly rapid taper-see below
Follow radiographically
According to a systemic review and meta-analysis of randomized control trials on the efficacy and safety of corticosteroids for the treatment of community-acquired pneumonia (Journal of critical care-2023) the patient would benefit from steroids
which has been shown to reduce the incidence of shock, need for mechanical ventilation, decreased length of hospital and ICU stay as well as decrease mortality. Hydrocortisone was the only steroid that decreased mortality according to the
meta-analysis. Hydrocortisone 200 mg once for load followed by infusion 50 mg IV every 6 hours will begin.
Check cultures
Influenza a positive
Urine streptococcal antigen positive
Empiric antibiotics-ceftriaxone continues, azithromycin discontinued
Monitor hemoglobin
Monitor blood sugar
Insulin supplementation as needed
DVT prophylaxis-on Lovenox
Nutrition
Early mobilization
Outpatient pulmonary [id number] saw Dr. Henning 08/13/2024-outpatient follow-up in the next 1-2 weeks
Diagnostic data:
Chest x-ray 09/25/2024-severe pulmonary fibrosis left greater than right with mild superimposed pneumonia left and right lung
CT chest 08/01/22: bilateral interstitial disease, septal thickening, groundglass. this is a slightly progressed compared to 2018
CT chest 05/21/24:bilateral interstitial changes, mild bronchiectasis.� No obvious nodule or adenopathy.� Without significant progression compared to 2021
CT chest 09/25/2024-left upper lobe, left lower lobe and right midlung and right middle lobe pneumonia, mild pulmonary fibrosis
PFT 01/24/18: FVC 2.24/74%, FEV1 1.94/85%, ratio 87, TLC 3.14/64%, DLCO 11.40/53%. When compared to 2015, this has been stable.
�PFT 05/15/24: FVC 2.00/72%, FEV1 1.70/81%, ratio 85.� TLC 2.60/52%, DLCO 9.29/45%.� When compared to 2020, TLC has decreased from 3.09-2.60 (16%).� DLCO has decreased from 11.98-9.29 (24%). moderate restriction with severe gas exchange defect
01/27/2016 ILD workup is normal.
Echocardiogram 09/03/2020-EF 55-60%, normal diastolic function, no significant valvular disease
Data Reviewed
-
PFT: Report reviewed by me
EKG: Report reviewed by me
Radiology: Image personally visualized and interpreted and Report reviewed by me
CT Scan: Image personally visualized and interpreted and Report reviewed by me
Medical Tests (Nuc Med, Echo etc): Report reviewed by me
Labs: Labs reviewed by me
Old Records: Reviewed
Total Time Spent with Patient (in minutes): 55
[2024-09-29] MEDS: CLARITIN 10 MG PO (08:05)
[2024-09-29] MEDS: CYMBALTA DELAYED RELEASE 30 MG PO ×2 (08:05→20:17)
[2024-09-29] MEDS: MUCINEX 600 MG PO ×2 (08:05→20:17)
[2024-09-29] MEDS: CRESTOR 5 MG PO (08:05)
[2024-09-29] MEDS: TESSALON PERLES 100 MG PO ×2 (08:05→20:19)
[2024-09-29 08:46] LABS: Hemoglobin 11.9 g/dL (12.0-16.0); Mean Corpuscular Hgb 35.2 pg (27.0-31.0); Mean Corpuscular Volume 103.6 fL (81.0-99.0); Mean Platelet Volume 8.8 fL (7.4-10.4); Platelet Count 285 10^3/uL (130-400); Red Blood Cell Count 3.38 10^6/uL (4.20-5.40); Red Cell Dist. Width 13.3 % (11.5-14.5); White Blood Cell Count 7.5 10^3/uL (4.8-10.8)
[2024-09-29 09:13] LABS: ALT (SGPT) 23 U/L (0-35); AST (SGOT) 25 U/L (14-36); Albumin 3.1 g/dl (3.5-5.0); Alkaline Phosphatase 74 U/L (38-126); Blood Urea Nitrogen 9 mg/dl (7-17); Calcium 8.5 mg/dl (8.4-10.2); Carbon Dioxide 33 mmol/L (22-30); Chloride 97 mmol/L (98-107); Estimated Creatinine Clearance 69 ml/min; Glucose 100 mg/dl (70-99); Potassium 3.6 mmol/L (3.5-5.1); Sodium 136 mmol/L (135-145); Total Bilirubin 0.3 mg/dl (0.2-1.3); Total Protein 6.1 g/dl (6.3-8.2); eGFR > 60.00
--- NOTE | 2024-09-29 10:52 | RESPNOTE ---
room air resting pulse ox - 92%
room air walking pulse ox - 86%
patient required 4L to maintain spo2 > 90% while ambulating. Patient walked 150 ft total
[2024-09-29] MEDS: ROBITUSSIN DM 10 ML PO (11:28)
[2024-09-29] MEDS: FLUSH (NSS) 1 FLUSH IV (11:29)
[2024-09-29] MEDS: STERILE WATER FOR INJECTION 10 ML IV (11:29)
[2024-09-29] MEDS: ROCEPHIN 1000 MG IV (11:29)
--- NOTE | 2024-09-29 12:18 | W.PN.HOSP.TC ---
Today's Communication/Plan
-
DC planning
Assessment / Plan
Assessment / Plan
#Sepsis
# Acute hypoxic respiratory failure likely from multifocal pneumonia, flu positive, strep pneumo urinary ag positive
# History of interstitial lung disease
-COVID flu negative
-Chest x-ray with Findings suggesting severe pulmonary fibrosis, left greater than right.Possible mild superimposed pneumonia in the left lung and right lower lung as described above. New
-Patient requiring 4 L of oxygen, wean as tolerated�on 2 L today, continue to wean ; ambulatory pulse ox eval today
-Continue supplemental oxygen to keep sat greater than 90
-Wean as tolerated
-Nebs as needed for short of breath and wheezing
- cw ceftriaxone continued, dced further zithromax. Will finish 10 day course of abx .
-Incentive [place]
�Hold on steroids as no active reactive airways;feel less likely ILD flare
- Consulted pulmonary
# Hyponatremia
-Likely SIADH
-monitor
� Resolved
# Depression
-Duloxetine
# GERD
-PPI continued
# Rheumatoid arthritis
-held Arava at home.
# Hyperlipidemia
-Statin continued
# DVT prophylaxis
-Lovenox subcu
# CODE STATUS
-Full code
DC if ok from pulm standpoint
Will eval O2 need at home
Will also add prn nebs at home
DW daughter at bedside
Anticipated Discharge: Today
Subjective/Interval History
-
Date of Service: September 29, 2024
Feeling improved.
Not SOB at rest.
Still on low flow O2 via NC.
No fever or chills.
No chest pain. No nausea vomiting. Tolerating diet.
Objective Data
-
Labs:
Laboratory Results
09/29/24
06:45
WBC 7.5
Hgb 11.9 L
Hct 35.0 L
Plt Count 285
Sodium 136
Potassium 3.6
Chloride 97 L
Carbon Dioxide 33 H
BUN 9
Creatinine 0.4 L
Glucose 100 H
Calcium 8.5
Total Bilirubin 0.3
AST 25
ALT 23
Alkaline Phosphatase 74
Vital Signs:
Vital Signs
Temp Pulse Resp BP Pulse Ox
97.5 F 71 15 122/79 94
09/29/24 07:20 09/29/24 07:50 09/29/24 07:50 09/29/24 07:20 09/29/24 09:35
I&O
09/28/24 09/29/24 09/30/24
06:59 06:59 06:59
Intake Total 3170 / 3170 720 / 720 480 / 480
Balance 3170 / 3170 720 / 720 480 / 480
Review of Systems
-
Constitutional: Denies Fever or Chills
EENT: Denies Sore Throat
Abdomen/GI: Denies Abdominal Pain, Nausea, Vomiting or Diarrhea
Neuro: Denies Dizzy or Headache
Physical Exam
-
General: Comfortable
Respiratory: Crackles (Coarse BL with some insp squeaks at times) and Non Labored Respirations; Negative Accessory Resp Muscle Use
Cardiac: Regular Rhythm and S1/S2; Negative Tachycardic
GI: Soft
Neuro: AO x 3
Psych: Calm
Data Reviewed
-
Labs: Labs Reviewed by me
[2024-09-29] MEDS: SOLU-CORTEF 50 MG IV ×3 (12:23→23:32)
--- NOTE | 2024-09-29 16:54 | CM ---
Pt is on 2liters oxygen Pox 94%.
Offered VN she declined need.
Pt may need Nebulizer at [facility] pharmacy information given to pt.She will get neb meds from her pharmacy.
will drive her home.
PLAN Home with possible oxygen if qualifies.
[2024-09-29] MEDS: LOVENOX 40 MG SC (17:58)
[2024-09-29] MEDS: PEPCID 20 MG PO (21:58)
[2024-09-30] MEDS: SOLU-CORTEF 50 MG IV ×2 (05:39→11:54)
[2024-09-30] MEDS: DUONEB 3 ML INH ×3 (07:16→15:22)
[2024-09-30] MEDS: ADVAIR HFA 230/21 MCG INHALER 2 PUFF INH (07:16)
[2024-09-30] MEDS: FLOVENT 44 MCG INHALER 1 PUFF INH (07:17)
[2024-09-30 07:21] LABS: Hematocrit 35.5 % (37.0-47.0); Mean Corp Hgb Conc. 33.8 g/dL (33.0-37.0); Mean Corpuscular Hgb 35.6 pg (27.0-31.0); Mean Corpuscular Volume 105.3 fL (81.0-99.0); Mean Platelet Volume 8.7 fL (7.4-10.4); Platelet Count 326 10^3/uL (130-400); Red Blood Cell Count 3.37 10^6/uL (4.20-5.40); Red Cell Dist. Width 13.2 % (11.5-14.5); White Blood Cell Count 7.7 10^3/uL (4.8-10.8)
[2024-09-30 07:49] LABS: ALT (SGPT) 23 U/L (0-35); AST (SGOT) 24 U/L (14-36); Albumin 3.2 g/dl (3.5-5.0); Alkaline Phosphatase 72 U/L (38-126); Blood Urea Nitrogen 12 mg/dl (7-17); Calcium 8.9 mg/dl (8.4-10.2); Carbon Dioxide 36 mmol/L (22-30); Chloride 96 mmol/L (98-107); Estimated Creatinine Clearance 69 ml/min; Glucose 131 mg/dl (70-99); Sodium 139 mmol/L (135-145); Total Bilirubin 0.4 mg/dl (0.2-1.3); Total Protein 6.1 g/dl (6.3-8.2); eGFR > 60.00
[2024-09-30] MEDS: MUCINEX 600 MG PO (08:20)
[2024-09-30] MEDS: CLARITIN 10 MG PO (08:20)
[2024-09-30] MEDS: CYMBALTA DELAYED RELEASE 30 MG PO (08:20)
[2024-09-30] MEDS: CRESTOR 5 MG PO (08:20)
[2024-09-30] MEDS: TESSALON PERLES 100 MG PO ×2 (08:26→15:50)
--- NOTE | 2024-09-30 10:09 | W.PN.PUL.V3 ---
Today's Communication / Plan
-
.
Steroid taper.
Antibiotics.
Outpatient pulmonary follow-up
Assessment
-
74-year-old female with history of interstitial lung disease followed by Dr. Henning as well as rheumatoid arthritis, hyperlipidemia, presented with increasing shortness of breath, cough and hypoxemia felt to have pneumonia and pulmonary was
consulted for Influenza/ILD/pneumonia 09/29/2024.
Community-acquired pneumonia
Influenza positive-did receive this years vaccine
Urine strep pneumoniae antigen positive
Mild nidvpp-lsvtqjmksh-bertcwkjsu 11.9, MCV 103.6
Mild hyperglycemia
Conditions present prior to admission:
Interstitial lung disease-followed by Dr. Henning-maintained on Advair, no antifibrotic's, mild progression from 6488-6693 and no evidence for worsening 2023
Rheumatoid arthritis-followed by Dr. Montes
Hyperlipidemia.
GERD.
Seasonal allergies.
Bilateral hip replacement. Left shoulder replacement.
Plan
Recent pulmonary decompensation likely due to community-acquired pneumonia-recently vaccinated for influenza, RSV as well as COVID
Supplemental oxygen as needed-92% on room air
Mucolytics
Isolation per protocol
DuoNebs 4 times daily
Continue Advair and Flovent
Add steroids with fairly rapid taper-see below-changed to prednisone and discharged with fairly rapid taper
Follow radiographically
According to a systemic review and meta-analysis of randomized control trials on the efficacy and safety of corticosteroids for the treatment of community-acquired pneumonia (Journal of critical care-2023) the patient would benefit from steroids
which has been shown to reduce the incidence of shock, need for mechanical ventilation, decreased length of hospital and ICU stay as well as decrease mortality. Hydrocortisone was the only steroid that decreased mortality according to the
meta-analysis. Hydrocortisone 200 mg once for load followed by infusion 50 mg IV every 6 hours will begin.
.
Cultures reviewed
Influenza a positive
Urine streptococcal antigen positive
Empiric antibiotics-ceftriaxone continues, azithromycin discontinued
Monitor hemoglobin
Monitor blood sugar
Insulin supplementation as needed
DVT prophylaxis-on Lovenox
Nutrition
Early mobilization.
Reviewed with primary team
Outpatient pulmonary nsnoer-xq-skvn saw Dr. Henning 08/13/2024-outpatient follow-up in the next 1-2 weeks
Diagnostic data:
Chest x-ray 09/25/2024-severe pulmonary fibrosis left greater than right with mild superimposed pneumonia left and right lung
CT chest 08/01/22: bilateral interstitial disease, septal thickening, groundglass. this is a slightly progressed compared to 2018
CT chest 05/21/24:bilateral interstitial changes, mild bronchiectasis.� No obvious nodule or adenopathy.� Without significant progression compared to 2021
[address] chest 09/25/2024-left upper lobe, left lower lobe and right midlung and right middle lobe pneumonia, mild pulmonary fibrosis
PFT 01/24/18: FVC 2.24/74%, FEV1 1.94/85%, ratio 87, TLC 3.14/64%, DLCO 11.40/53%. When compared to 2016, this has been stable.
�PFT 05/15/24: FVC 2.00/72%, FEV1 1.70/81%, ratio 85.� TLC 2.60/52%, DLCO 9.29/45%.� When compared to 2020, TLC has decreased from 3.09-2.60 (16%).� DLCO has decreased from 11.98-9.29 (24%). moderate restriction with severe gas exchange defect
01/27/2016 ILD workup is normal.
Echocardiogram 09/03/2020-EF 55-60%, normal diastolic function, no significant valvular disease
Subjective Data
-
Date of Service:
Date of Service: September 30, 2024
Chief Complaint: Pulmonary Follow Up and Dyspnea Follow Up
Subjective:
Feels better, less short of breath, no chest pain or abdominal pain
Review of Systems
General: Other ( per HPI)
Objective Data
Data Reviewed
Vital Signs / I&O:
Vital Signs
Temp Pulse Resp BP Pulse Ox
97.4 F 89 18 125/75 92
09/30/24 07:30 09/30/24 07:30 09/30/24 07:30 09/30/24 07:30 09/30/24 08:19
Intake and Output
09/29/24 09/30/24 10/01/24
06:59 06:59 06:59
Intake Total 720 / 720 1200 / 1200
Output Total 240 / 240
Balance 720 / 720 960 / 960
SaO2: 92
Nasal Cannula flow liters per minute: 2
Physical Exam
General: Respiratory Distress (n) and Comfortable
HEENT: Normocephalic, Anicteric and Moist Mucous Membranes
Cardiovascular: Regular Rhythm and Murmur
Respiratory: Wheeze ( expiratory), Crackles ( bilateral posterior pathway), Non-Labored Respirations, Accessory Resp Muscle Use (n) and Stridor
GI: Soft, Non Distended and Non Tender
Neurology: Awake, Alert and No Motor Deficits
Skin: Warm, Good Color, Cyanosis (n), Jaundice (n) and Rash
Labs/Micro/Reports
Lab Data
09/30/24 06:22
09/30/24 06:22
Microbiology
09/25/24 12:56 Blood/Venous Blood Culture - Preliminary
No Growth in 4 days- Final report to follow
09/25/24 12:56 Blood/Venous Blood Culture - Preliminary
No Growth in 4 days- Final report to follow
[2024-09-30] MEDS: ROCEPHIN 1000 MG IV (11:53)
[2024-09-30] MEDS: FLUSH (NSS) 1 FLUSH IV (11:54)
[2024-09-30] MEDS: STERILE WATER FOR INJECTION 10 ML IV (11:54)
--- NOTE | 2024-09-30 13:39 | W.PN.HOSP.TC ---
Addendum entered and electronically signed by Jared Marcus MD 09/30/24 15:45:
Patient is in need of oxygen on exertion due to pulse oximetry of 92% on room air at rest; 86% on room air with exertion.
Patient was placed on 3L O2 via nasal cannula with saturation of 91%. Oxygen will help to improve hypoxemia.
Patient is mobile within the home. Albuterol therapy has been discussed and is ineffective in treating hypoxemia-related symptoms.
Oxygen will improve the patient's symptoms.
Original Note:
Today's Communication/Plan
-
cw abx
cw steroids
dc planning
Assessment / Plan
Assessment / Plan
#Sepsis
# Acute hypoxic respiratory failure likely from multifocal pneumonia, flu positive, strep pneumo urinary ag positive
# History of interstitial lung disease
-COVID flu negative
-Chest x-ray with Findings suggesting severe pulmonary fibrosis, left greater than right.Possible mild superimposed pneumonia in the left lung and right lower lung as described above. New
- On RA today.
-Nebs as needed for short of breath and wheezing
- cw ceftriaxone continued, dced further zithromax. Will finish 10 day course of abx .
-Incentive [place]
�Inititaed on steroids by pulm- pt feels improved
- Appt pulm inout
# Hyponatremia
-Likely SIADH
-monitor
� Resolved
# Depression
-Duloxetine
# GERD
-PPI continued
# Rheumatoid arthritis
-held Arava at home.
# Hyperlipidemia
-Statin continued
# DVT prophylaxis
-Lovenox subcu
# CODE STATUS
-Full code
DC if ok from pulm standpoint
Will also add prn nebs at home
Anticipated Discharge: Today
Subjective/Interval History
-
Date of Service: September 30, 2024
Feeling improved with steroids intitiation.
Off of O2 at rest.
Cough better.
Not SOB at rest.
No fevers
Objective Data
-
Labs:
Laboratory Results
09/30/24
06:22
WBC 7.7
Hgb 12.0
Hct 35.5 L
Plt Count 326
Sodium 139
Potassium 4.0
Chloride 96 L
Carbon Dioxide 36 H
BUN 12
Creatinine 0.4 L
Glucose 131 H
Calcium 8.9
Total Bilirubin 0.4
AST 24
ALT 23
Alkaline Phosphatase 72
Vital Signs:
Vital Signs
Temp Pulse Resp BP Pulse Ox
97.4 F 94 16 125/75 92
09/30/24 07:30 09/30/24 11:06 09/30/24 11:06 09/30/24 07:30 09/30/24 11:06
I&O
09/29/24 09/30/24 10/01/24
06:59 06:59 06:59
Intake Total 720 / 720 1200 / 1200
Output Total 240 / 240
Balance 720 / 720 960 / 960
Review of Systems
-
Cardiac: Denies Chest Pain
Abdomen/GI: Denies Abdominal Pain, Nausea or Vomiting
Neuro: Denies Dizzy
Physical Exam
-
General: Comfortable
HEENT: Moist Mucous Membranes
Respiratory: Crackles (Coarse crackles bilateral lower zones) and Non Labored Respirations; Negative Accessory Resp Muscle Use
Cardiac: Regular Rhythm and S1/S2
Neuro: AO x 3
Psych: Calm
Data Reviewed
-
Labs: Labs Reviewed by me
--- NOTE | 2024-09-30 16:05 | CM ---
entered order for discharge.
Home oxygen test done pt qualifies for oxygen.
[facility] notified form [employer] . Script completed clinical faxed to [facility] [phone].
[facility] delivered oxygen pt instructed to call for concentrator delivery on way home.
Offered VN she declined need.
Nebulizer script given to pt at ma. [facility] information given to pt.She will get neb meds from her pharmacy.
Dgt will drive her home.
IMM reviewed signed on chart.
PLAN Home with portable oxygen from [facility] .
--- NOTE | 2024-09-30 18:48 | W.DCSUMMARY ---
Discharge Summary
Discharge Data
Date of Admission: 09/25/24
Date of Discharge: 09/30/24
-
Pending Results: No
Hospital Course
Primary diagnosis:
#Sepsis
# Acute hypoxic respiratory failure likely from multifocal pneumonia, flu positive, strep pneumo urinary ag positive
# History of interstitial lung disease
#Hyponatremia -Likely SIADH
Secondary diagnosis:
Depression
Esophageal reflux disease
Rheumatoid arthritis on Arava
Hyperlipidemia
Hospital course:
With history of rheumatoid arthritis, underlying ILD on Arava presented with cough and shortness of breath and diagnosed to have sepsis along with acute hypoxic respiratory failure. She was influenza A positive close also she had a urinary
streptococcal pneumonia antigen positivity. She has underlying ILD and a chest CT showed moderate left upper lobe, moderate left lower lobe on right mild lower lobe and mild right middle lobe new airspace disease concerning for pneumonia. She was
treated with ceftriaxone. She was very reactive with her airways send a pulmonary consultation was obtained who recommended steroids and addition of which has improved his symptoms. We were able to wean off oxygen on room air but with exertion she
dropped down to 86% so home O2 was arranged. When she was medically stable she was transition to oral Medrol Dosepak and 2 more days of antibiotics were prescribed and discharged home.
Consultants on board:
Pulmonary-[facility]
Discharge Plan
-
Patient Disposition: Home with Home Care
Discharge Diagnosis/Procedures: Acute influenza A infection, Streptococcus pneumoniae possible pneumonia, history of ILD, acute hypoxic respiratory insufficiency
Diet: Regular
Activity: As tolerated
Driving Restrictions: As prior to admission
Bathing Restrictions: None
Referrals:
Vandana Henning MD [Active] - in one to two weeks (or nurse [id number] pneumonia)
Robe Cooley Jr., DO [Family Provider] - in less than 1 week
Prescriptions:
New
fluticasone propion-salmeterol 230-21 mcg/actuation Hfa Aerosol Inhaler
2 puff inhalation R BID Qty: 12 0RF
ipratropium-albuterol 0.5 mg-3 mg(2.5 mg base)/3 mL Solution For Nebulization
3 ml inhalation R QID PRN (Reason: shortness of breath or wheezing) Qty: 90 0RF
guaifenesin 600 mg Tablet Extended Release 12hr
600 mg PO Q12 Qty: 14 0RF
dextromethorphan-guaifenesin 10-100 mg/5 mL Syrup
10 ml PO Q4HPRN PRN (Reason: cough) Qty: 237 0RF
cefuroxime axetil 500 mg tablet
500 mg PO BID Qty: 4 0RF
Rx Instructions:
for 2 more days
benzonatate 100 mg Capsule
100 mg PO TIDPRN PRN (Reason: cough) Qty: 21 0RF
methylprednisolone [Medrol (Sajan)] 4 mg tablets,dose pack
See Rx Instructions .ROUTE .COMPLEX Qty: 21 0RF
Rx Instructions:
for 6 days
Continued
Asmanex Twisthaler 220 MCG aerosol powdr breath activated
2 puff inhalation R DAILY
Patient Comments:
2 inhalations daily
cyanocobalamin (vitamin B-12) 1,000 MCG capsule
1,000 mcg PO DAILY Qty: 0
Vitamin B12
1,000 mg INJ Q6W
leflunomide [Arava] 10 MG tablet
10 mg PO DAILY
albuterol sulfate 90 mcg/actuation Hfa Aerosol Inhaler
2 puff INHALATION R Q4HPRN PRN (Reason: sob) Qty: 0
ascorbic acid (vitamin C) [Vitamin C] 1,000 mg Tablet
1 g PO DAILY
fexofenadine 180 mg Tablet
180 mg PO DAILY
acetaminophen [Tylenol Arthritis Pain] 650 mg Tablet Extended Release
1,300 mg PO Q8HPRN PRN (Reason: mild pain)
famotidine [Pepcid] 20 mg Tablet
20 mg PO HS
rosuvastatin 5 mg Tablet
5 mg PO DAILY
duloxetine 30 mg Capsule,Delayed Release(Dr/Ec)
30 mg PO BID
cholecalciferol (vitamin D3) [Vitamin D3] 50 mcg (2,000 unit) Tablet
50 mcg PO Q48H
omega [id number] oil [Fish Oil] 1,200 (144-216) mg Capsule
1 cap PO DAILY
turmeric 400 mg Capsule
800 mg PO DAILY
fluticasone propion-salmeterol 500-50 mcg/dose Blister With Device
1 inh INHALATION R BID
Discharge Orders:
Discharge Patient (As Directed); Ordered 09/30/24
Ordered By: Jared Marcus
Discharge Date and Time
Discharge Date/Time: 09/30/24 17:54
Print Language: STATELESS
== END 2024-09-30 17:54 | disposition home or self-care (01) | DRG 871 ==
LOC: 4 EAST ACU 13:22
PROVIDERS: Internal Medicine; Registered Nurse; ADMITTING PHYSICIAN Internal Medicine; ATTENDING PHYSICIAN Internal Medicine; CONSULT PHYSICIAN Internal Medicine Critical Care Medicine; EMERGENCY PHYSICIAN Emergency Medicine; FAMILY PHYSICIAN Family Medicine
DX: A41.89 Other specified sepsis (principal); J10.08 Influenza due to other identified influenza virus with other specified pneumonia; J96.01 Acute respiratory failure with hypoxia; J13 Pneumonia due to Streptococcus pneumoniae; E22.2 Syndrome of inappropriate secretion of antidiuretic hormone; J84.10 Pulmonary fibrosis, unspecified; F32.A Depression, unspecified; K21.9 Gastro-esophageal reflux disease without esophagitis; M06.9 Rheumatoid arthritis, unspecified; Z11.52 Encounter for screening for COVID-19; Z79.899 Other long term (current) drug therapy; D51.0 Vitamin B12 deficiency anemia due to intrinsic factor deficiency; Z96.643 Presence of artificial hip joint, bilateral; Z96.612 Presence of left artificial shoulder joint; Z88.6 Allergy status to analgesic agent; Z88.0 Allergy status to penicillin; Z88.2 Allergy status to sulfonamides; Z88.8 Allergy status to other drugs, medicaments and biological substances; E87.70 Fluid overload, unspecified; E86.0 Dehydration; E78.00 Pure hypercholesterolemia, unspecified; Z82.5 Family history of asthma and other chronic lower respiratory diseases; Z82.62 Family history of osteoporosis; Z83.3 Family history of diabetes mellitus; M19.90 Unspecified osteoarthritis, unspecified site
CPT/HCPCS: 71046; 71250; 80048; 80053; 83605; 85025; 85027; 87040; 87449; 87502; 87811; 87899; 93005; 94640; 96361; 96365; 96375; 97116; 97162; 99291

== ENCOUNTER → 2024-10-22 11:50 | Outpatient (REF) | payer OTHER, SELFPAY | LOC: RAD 11:50 | PROVIDERS: ATTENDING PHYSICIAN Family Medicine | DX: J18.9 Pneumonia, unspecified organism (principal) | CPT/HCPCS: 71046 ==

== ENCOUNTER → 2024-11-21 08:11 | Outpatient (REF) | payer OTHER, SELFPAY | LOC: MRI 3T 08:11 | PROVIDERS: ATTENDING PHYSICIAN Physician Assistant; FAMILY PHYSICIAN Family Medicine; REFERRING PHYSICIAN Internal Medicine Rheumatology | DX: M54.16 Radiculopathy, lumbar region (principal) | CPT/HCPCS: 72148 ==

== ENCOUNTER → 2024-12-24 12:27 | Outpatient (REF) | payer OTHER, SELFPAY | LOC: RAD 12:27 | PROVIDERS: ATTENDING PHYSICIAN Internal Medicine Critical Care Medicine; FAMILY PHYSICIAN Family Medicine; REFERRING PHYSICIAN Internal Medicine Rheumatology | DX: J84.9 Interstitial pulmonary disease, unspecified (principal) | CPT/HCPCS: 71046 ==

== ENCOUNTER → 2025-03-05 10:55 | Outpatient (REF) | payer OTHER, SELFPAY | LOC: WDC 10:55 | PROVIDERS: ATTENDING PHYSICIAN Family Medicine | DX: M81.0 Age-related osteoporosis without current pathological fracture (principal); Z13.820 Encounter for screening for osteoporosis; Z12.31 Encounter for screening mammogram for malignant neoplasm of breast | CPT/HCPCS: 77063; 77067; 77080 ==

== ENCOUNTER → 2025-05-29 11:17 | Outpatient (REF) | payer OTHER, SELFPAY | LOC: RAD 11:17 | PROVIDERS: ATTENDING PHYSICIAN Internal Medicine Critical Care Medicine; FAMILY PHYSICIAN Family Medicine | DX: J84.9 Interstitial pulmonary disease, unspecified (principal) | CPT/HCPCS: 71250 ==

== ENCOUNTER → 2025-07-15 11:22 | Outpatient (REF) | payer OTHER, SELFPAY | LOC: RAD 11:22 | PROVIDERS: ATTENDING PHYSICIAN Internal Medicine Rheumatology; FAMILY PHYSICIAN Family Medicine | DX: M05.79 Rheumatoid arthritis with rheumatoid factor of multiple sites without organ or systems involvement (principal); M06.00 Rheumatoid arthritis without rheumatoid factor, unspecified site; M19.012 Primary osteoarthritis, left shoulder | CPT/HCPCS: 73030 ==